=== PATIENT | female | born 1940 | race Caucasian/White ===

== ENCOUNTER 2017-12-31 18:35 | Outpatient (REF) | payer OTHER, SELFPAY ==
[2017-12-31 19:30] LABS: ALT 43 U/L (12-78); AST 33 U/L (15-37); Albumin 3.9 g/dL (3.4-5.0); Alkaline Phosphatase 85 U/L (46-116); Anion Gap 11.5 mmol/L (3-11); BUN 27 mg/dL (7-18); Bilirubin, Total 1.8 mg/dL (0.2-1.0); CO2 28.5 mmol/L (21.0-32.0); Calcium 9.3 mg/dL (8.5-10.1); Chloride 104 mmol/L (98-107); Cholesterol 224 mg/dL (50-200); Estimated GFR 33.67 (mL/min/1.73m2); Glucose 91 mg/dL (70-100); HDL Cholesterol 68 mg/dL (40-60); LDL CHOLESTEROL 142 mg/dL (<100); Potassium 3.7 mmol/L (3.5-5.1); Sodium 144 mmol/L (136-145); Triglyceride 90 mg/dL (30-150)
== END 2017-12-31 18:55 ==
LOC: NCHCN 18:35
PROVIDERS: PCP Nurse Practitioner; Visit Provider Nurse Practitioner
DX: N28.9 Disorder of kidney and ureter, unspecified (principal); I10 Essential (primary) hypertension; E78.5 Hyperlipidemia, unspecified
CPT/HCPCS: 80053; 80061; 83721

== ENCOUNTER 2018-07-07 14:11 | Inpatient (IN) | payer OTHER, SELFPAY ==
[2018-07-07] VITALS (36 sets, daily range): BP systolic 32–135; BP diastolic 13–103; PULSE 74–91; RESP 15–33; TEMP 36.6–36.9; O2SAT 90–97
--- NOTE | 2018-07-07 14:25 | DI.RAD_ITS ---
SYMPTOM/DIAGNOSIS: SOB AP AND LATERAL CHEST: The heart is markedly enlarged. No previous chest film available for comparison. There are bilateral pleural effusions, probably small. There is some prominence of the pulmonary interstitial markings raising the possibility of mild CHF. CONCLUSION: Marked cardiomegaly, question mild CHF. No previous films available for comparison.
--- NOTE | 2018-07-07 14:26 | W.ED.GENAD ---
Discharge Plan Disposition Patient Disposition: [facility] INPATIENT Condition: Improving Discharge Details Chief Complaint: SOB Clinical Impression: CHF (congestive heart failure) Admit Date/Time: 07/07/18 17:35 Admit Provider: Ronald Lyle Attending Provider: Ronald Lyle Primary Care Provider: Selena Santacruz ED Provider: Иван Blanco Discharge Data Discharge Date/Time-TO BE ENTERED AT DEPARTURE: 07/07/18 18:40 Medical Decision Making 78-year-old with a history of hypertension, VSD, pulmonary hypertension, presents from home via EMS with what she describes as transient shortness of breath upon awakening this morning. Improved by the time of arrival. However, she will note 3 to 4 days of increasing exertional dyspnea in which she gets short of breath when walking across her trailer. She is also noted concomitant lower extremity edema and states that she had a recent increase in her diuretic per her primary care physician. She lives alone. She arrives afebrile, with normal blood pressure, 88 to 90% sat on room air. Crackles present at the bases. Concern for fluid overload given her clinical presentation. IV access established, patient placed a cardiac cath technician, labs obtained. Patient given 40 mg of IV Lasix which has been her oral dose, she states, over the past 2 weeks. Diagnostics: Notable for worsening renal function with BUN 42, creatinine 1.7. BNP is 31,616, troponin 0.06. Chest x-ray reviewed with Dr. Robles: Cardiomegaly, cephalization of vessels, small pleural effusions, consistent with congestive heart failure. Patient states to me she has had no outpatient or referral care outside of the local region and is been followed at [facility] for 50 years. She states she had had a VSD since a young age, and has had no ongoing cardiac care as an adult. She is improving with diuresis. She states she feels better. As she lives alone and has persistent fluid overload she will benefit from admission and further work-up. Case discussed with Dr Lyle. Note: Patient wishes to be DNR DNI. Records requested from clinic. Medications reviewed from clinic visit in January 2018: Aspir-81 81 MG Tablet Delayed Release 1 tablet Orally Once a day Vitamin D 400 UNIT Tablet Orally [place] 3-6-9 Complex Capsule Orally Lorazepam 0.5 MG Tablet 1 tablet as needed Orally Twice a day Lasix 20 MG Tablet 1 tablet Orally Once a day (increased to 40mg per patient) Lisinopril 20 MG Tablet 1 tablet Orally Once a day Atorvastatin Calcium 10 MG Tablet 1 tablet Orally Once a day ECG Data Attestation: I personally reviewed and interpreted this ECG (s) as follows: Interpretation: Normal sinus rhythm with a rate of 86, the QRS slightly widened with a duration of [address] segment elevation present. There is nonspecific T wave changes in leads aVL HPI General Mode of arrival: EMS. Date/Time Provider Initiated Documentation: 07/07/18 14:18. Limitations to Documentation: no limitations. Information obtained by: patient and EMS. History of Present Illness 78 year old F presents to the emergency department with the chief complaint of Shortness of breath this morning, improved. Worsening over 3 days, described as similar to prior episodes, and is localized to the chest. Patient started experiencing this minute(s) and it has been intermittent. Movement worsens symptoms . Patient notes shortness of breath; denies chest pain, cough and fever/chills. Patient did receive the following treatments prior to arrival, none Related Data Home Medications Medication Instructions Recorded Confirmed Clayton 3 830 mg PO DAILY 07/07/18 07/07/18 aspirin [Aspir-81] 81 mg PO DAILY 07/07/18 07/07/18 atorvastatin 10 mg PO QHS 07/07/18 07/07/18 cholecalciferol (vitamin D3) 400 unit PO DAILY 07/07/18 07/07/18 furosemide [Lasix] 20 mg PO DAILY 07/07/18 07/07/18 hydroxyzine HCl 10 mg PO HS 07/07/18 07/07/18 lorazepam 0.5 mg PO QHS PRN 07/07/18 07/07/18 Allergies Allergy/AdvReac Type Severity Reaction Status Date / Time Penicillins Allergy Unverified 07/07/18 18:59 Sulfa (Sulfonamide Allergy Unverified 07/07/18 18:59 Antibiotics) General Stated Complaint: RespSymp RETA: 2 Review of Systems Review of Systems No chest pain. Notes bilateral peripheral edema. States recent increase in her Lasix. No recent cough or fever. 8 systems reviewed and otherwise neg [facility] Medical History Insomnia (Chronic) Anxiety (Chronic) Pulmonary hypertension (Chronic) Dyslipidemia (Chronic) Hypertension (Chronic) CKD (chronic kidney disease) (Chronic) Chronic venous insufficiency (Chronic) VSD (ventricular septal defect) (Chronic) Sensorineural hearing loss of both ears (Chronic) Social History Alcohol Intake: never Drug use: Never Substance use type: does not use Do you feel safe at home: Yes Do you feel safe in your relationship?: Yes Additional Social history: , 2 children. Lifelong nonsmoker, occasional alcohol use. Exam Narrative Exam Narrative: GEN: awake, alert, oriented 3. Pleasant, well groomed, interactive. HEAD: Normocephalic, atraumatic ENT: Mucous membranes moist, oropharynx unremarkable, External ear exam unremarkable EYES: PERRL, EOMI NECK: Full ROM, no REJI, no menigismus CHEST/RESP: Nontender, rales present at the bases CARDIOVASCULAR: Distant, blowing 2 out of 6 to 3 out of 6 systolic ejection murmur, no rub mark. 2+ Rad pulse bilateral ABDOMEN: Soft, nontender, no mass. +Bowel sounds EXT: Full ROM, 2-3+ symmetric lower extremity edema, no rash. Cool with palpable DP bilaterally Neuro: Grossly normal neurologic exam, conversant, interactive. Psych: Speech fluent, thoughts congruent, affect normal Course Vital Signs Temperature 36.7 C 07/07/18 14:15 Respiratory Rate 18 07/07/18 14:15 Temperature 36.7 C 07/07/18 14:15 Temperature Source Temporal Artery Scan 07/07/18 14:15 Respiratory Rate 18 07/07/18 14:15 Oxygen Delivery Method Room Air 07/07/18 14:15 Oxygen Flow Rate 0 07/07/18 14:15
--- NOTE | 2018-07-07 14:29 | ED.GENADUL_ITS ---
Discharge Plan Disposition Patient Disposition: [facility] INPATIENT Condition: Improving Discharge Details Chief Complaint: SOB Clinical Impression: CHF (congestive heart failure) Admit Date/Time: 07/07/18 17:35 Admit Provider: Ronald Lyle Attending Provider: Ronald Lyle Primary Care Provider: Selena Santarcuz ED Provider: Иван Blanco Discharge Data Discharge Date/Time-TO BE ENTERED AT DEPARTURE: 07/07/18 18:40 Medical Decision Making 78-year-old with a history of hypertension, VSD, pulmonary hypertension, presents from home via EMS with what she describes as transient shortness of breath upon awakening this morning. Improved by the time of arrival. However, she will note 3 to 4 days of increasing exertional dyspnea in which she gets short of breath when walking across her trailer. She is also noted concomitant lower extremity edema and states that she had a recent increase in her diuretic per her primary care physician. She lives alone. She arrives afebrile, with normal blood pressure, 88 to 90% sat on room air. Crackles present at the bases. Concern for fluid overload given her clinical presentation. IV access established, patient placed a electronic device monitor, labs obtained. Patient given 40 mg of IV Lasix which has been her oral dose, she states, over the past 2 weeks. Diagnostics: Notable for worsening renal function with BUN 42, creatinine 1.7. BNP is 31,616, troponin 0.06. Chest x-ray reviewed with Dr. Robles: Cardiomegaly, cephalization of vessels, small pleural effusions, consistent with congestive heart failure. Patient states to me she has had no outpatient or referral care outside of the local region and is been followed at [facility] for 50 years. She states she had had a VSD since a young age, and has had no ongoing cardiac care as an adult. She is improving with diuresis. She states she feels better. As she lives alone and has persistent fluid overload she will benefit from admission and further work-up. Case discussed with Dr Lyle. Note: Patient wishes to be DNR DNI. Records requested from clinic. Medications reviewed from clinic visit in January 2018: Aspir-81 81 MG Tablet Delayed Release 1 tablet Orally Once a day Vitamin D 400 UNIT Tablet Orally [place] 3-6-9 Complex Capsule Orally Lorazepam 0.5 MG Tablet 1 tablet as needed Orally Twice a day Lasix 20 MG Tablet 1 tablet Orally Once a day (increased to 40mg per patient) Lisinopril 20 MG Tablet 1 tablet Orally Once a day Atorvastatin Calcium 10 MG Tablet 1 tablet Orally Once a day ECG Data Attestation: I personally reviewed and interpreted this ECG (s) as follows: Interpretation: Normal sinus rhythm with a rate of 86, the QRS slightly widened with a duration of [address] segment elevation present. There is nonspecific T wave changes in leads aVL HPI General Mode of arrival: EMS . Date/Time Provider Initiated Documentation: 07/07/18 14:18 . Limitations to Documentation: no limitations . Information obtained by: patient and EMS . History of Present Illness 78 year old F presents to the emergency department with the chief complaint of Shortnes s of breath this morning, improved. Worsening over 3 days, described as similar to prior episodes, and is localized to the chest. Patient started experiencing this minute(s) and it has been intermittent. Movement worsens symptoms . Patient notes shortness of breath; denies chest pain, cough and fever/chills. Patient did receive the following treatments prior to arrival, none Related Data Home Medications Medication Instructions Recorded Confirmed [place] 3 830 mg PO DAILY 07/07/18 07/07/18 aspirin [Aspir-81] 81 mg PO DAILY 07/07/18 07/07/18 atorvastatin 10 mg PO QHS 07/07/18 07/07/18 cholecalciferol (vitamin D3) 400 unit PO DAILY 07/07/18 07/07/18 furosemide [Lasix] 20 mg PO DAILY 07/07/18 07/07/18 hydroxyzine HCl 10 mg PO HS 07/07/18 07/07/18 lorazepam 0.5 mg PO QHS PRN 07/07/18 07/07/18 Allergies Allergy/AdvReac Type Severity Reaction Status Date / Time Penicillins Allergy Unverified 07/07/18 18:59 Sulfa (Sulfonamide Allergy Unverified 07/07/18 18:59 Antibiotics) General Stated Complaint: RespSymp RETA: 2 Review of Systems Review of Systems No chest pain. Notes bilateral peripheral edema. States recent increase in her Lasix. No recent cough or fever. 8 systems reviewed and otherwise neg [facility] Medical History Insomnia (Chronic) Anxiety (Chronic) Pulmonary hypertension (Chronic) Dyslipidemia (Chronic) Hypertension (Chronic) CKD (chronic kidney disease) (Chronic) Chronic venous insufficiency (Chronic) VSD (ventricular septal defect) (Chronic) Sensorineural hearing loss of both ears (Chronic) Social History Alcohol Intake: never Drug use: Never Substance use type: does not use Do you feel safe at home: Yes Do you feel safe in your relationship?: Yes Additional Social history: , 2 children. Lifelong nonsmoker, occasional alcohol use. Exam Narrative Exam Narrative: GEN: awake, alert, oriented 3. Pleasant, well groomed, interactive. HEAD: Normocephalic, atraumatic ENT: Mucous membranes moist, oropharynx unremarkable, External ear exam unremarkable EYES: PERRL, EOMI NECK: Full ROM, no REJI, no menigismus CHEST/RESP: Nontender, rales present at the bases CARDIOVASCULAR: Distant, blowing 2 out of 6 to 3 out of 6 systolic ejection murmur, no rub mark. 2+ Rad pulse bilateral ABDOMEN: Soft, nontender, no mass. +Bowel sounds EXT: Full ROM, 2-3+ symmetric lower extremity edema, no rash. Cool with palpable DP bilaterally Neuro: Grossly normal neurologic exam, conversant, interactive. Psych: Speech fluent, thoughts congruent, affect normal Course Vital Signs Temperature 36.7 C 07/07/18 14:15 Respiratory Rate 18 07/07/18 14:15 Temperature 36.7 C 07/07/18 14:15 Temperature Source Temporal Artery Scan 07/07/18 14:15 Respiratory Rate 18 07/07/18 14:15 Oxygen Delivery Method Room Air 07/07/18 14:15 Oxygen Flow Rate 0 07/07/18 14:15
[2018-07-07] MEDS: Furosemide 40 MG/4 ML VIAL IVP (14:53)
[2018-07-07 15:27] LABS: Abs Immature Grans 0.01 k/cumm (0.0-0.09); Absolute Basophil Count 0.03 k/cumm (0.0-0.2); Absolute Eosinophil Count 0.03 k/cumm (0.0-0.7); Absolute Lymphocyte Count 0.47 k/cumm (1.2-3.4); Absolute Monocyte Count 0.47 k/cumm (0.11-0.7); Absolute Neutrophil Count 4.14 k/cumm (1.2-6.7); Basophils % 0.6; Eosinophils % 0.6; HCT 47.2 % (36.0-46.0); HGB 16.5 g/dL (12.0-15.5); Immature Grans % 0.2; Lymphocytes % 9.1; Mean Corpuscular Hemoglobin 32.7 pg (27.0-33.0); Mean Corpuscular Volume 93.7 fL (80-95); Mean Platelet Volume 11.9 fL (8.0-11.0); Monocytes % 9.1; Neutrophils % 80.4; Platelet Count 106 x1000/uL (130-400); RBC 5.04 m/cumm (4.00-5.20); RBC Distribution Width 18.7 % (11.7-14.6); White Blood Cell Count 5.15 k/cumm (4.4-10.8)
[2018-07-07 15:33] LABS: INR 1.3 (0.9-1.1); PTT Activated 23.6 sec (21.0-31.4); Prothrombin Time 13.2 sec (9.3-11.0)
[2018-07-07 15:48] LABS: ALT 44 U/L (12-78); AST 45 U/L (15-37); Albumin 3.6 g/dL (3.4-5.0); Alkaline Phosphatase 104 U/L (46-116); Anion Gap 12.2 mmol/L (3-11); BUN 42 mg/dL (7-18); Bilirubin, Total 3.5 mg/dL (0.2-1.0); CO2 26.8 mmol/L (21.0-32.0); CREATININE 1.72 mg/dL (0.55-1.02); Calcium 9.8 mg/dL (8.5-10.1); Chloride 99 mmol/L (98-107); Estimated GFR 28.68 (mL/min/1.73m2); Glucose 108 mg/dL (70-100); Magnesium 2.9 mg/dL (1.8-2.4); Potassium 4.6 mmol/L (3.5-5.1); Sodium 138 mmol/L (136-145); Troponin I 0.06 ng/mL (0.00-0.06)
[2018-07-07] MEDS: Aspirin 325 MG TAB PO (16:23)
--- NOTE | 2018-07-07 17:34 | HPE_ITS ---
Date of service: 07/07/18 Time of Service: 17:32 Assessment and Plan (1) CHF (congestive heart failure): Current visit: Yes Status: Chronic Appearance of significantly enlarged heart on CXR, grossly elevated BNP, worsening dyspnea, and lower extremity edema in elderly woman with a history of VSD. Given renal function will initiate on low dose lasix gtt and monitor weight, I/O's, and lytes carefully. Check ECHO tomorrow, and trend serial Cardiac Biomarkers. Will maintain on telemetry as well. (2) YOUSUF (acute kidney injury): Current visit: Yes Status: Acute YOUSUF on CKD. May be due to CHF and poor perfusion. Will attempt gentle diuresis as above, and monitor renal function carefully. Avoid nephrotoxins, and renally dose medications when appropriate. (3) Elevated LFTs: Current visit: Yes Status: Acute New finding - patient also with mild chronic elevation in total Bilirubin, worsened today. Findings may be secondary to Congestive Hepatopathy in the setting of current CHF exacerbation. (4) Pulmonary hypertension: Current visit: Yes Status: Chronic Noted. ECHO as above. (5) VSD (ventricular septal defect): Current visit: Yes Status: Chronic (6) DVT prophylaxis: Current visit: Yes Status: Acute SC Heparin. (7) Advance directive on file: Current visit: Yes Status: Acute DNR/DNI History of Present Illness Chief Complaint: Dyspnea Narrative: Very pleasant 78 year old woman with a prior history of a VSD, being admitted from [facility] Emergency Department on 07/07 with a diagnosis of Acute CHF Exacerbation. Mrs. Slade has a past Medical History significant for VSD, CKD, HTN, PHTN, Dyslipidemia, Anxiety, Insomnia, and Venous Insufficiency. The details of her Septal Defect and PHTN are unknown. She reports onset of LE swelling, along with subjective dyspnea over the last few weeks. She was seen in the clinic by her PCP, diagnosed and treated for a lower extremity cellulitis, at the end of April, and seen again recently. She was reported initiated on diuretic therapy in order to assist with the lower extremity edema. Despite this she reports worsening edema, dyspnea, HAQUE, and now with increased work of breathing. The patient awoke this morning feeling worse, and was transported to the hospital via EMS. Work-up was significant for mildly worsened renal function, mildlly Elevated AST and Bilirubin, grossly elevated BNP, and evidence of CHF Cardiomegally by CXR. She was admitted for further evaluation and treatment. Review of Systems Review of Systems All systems reviewed & are unremarkable except as noted in HPI and below PFSH Medical History Insomnia (Chronic) Anxiety (Chronic) Pulmonary hypertension (Chronic) Dyslipidemia (Chronic) Hypertension (Chronic) CKD (chronic kidney disease) (Chronic) Chronic venous insufficiency (Chronic) VSD (ventricular septal defect) (Chronic) Sensorineural hearing loss of both ears (Chronic) Social History Alcohol Intake: never Drug use: Never Substance use type: does not use Do you feel safe at home: Yes Do you feel safe in your relationship?: Yes Additional Social history: , 2 children. Lifelong nonsmoker, occasional alcohol use. Meds Home Medications Medication Instructions Recorded Confirmed Type Eden 3 830 mg PO DAILY 07/07/18 07/07/18 History aspirin [Aspir-81] 81 mg PO DAILY 07/07/18 07/07/18 History atorvastatin 10 mg PO QHS 07/07/18 07/07/18 History cholecalciferol (vitamin D3) 400 unit PO DAILY 07/07/18 07/07/18 History furosemide [Lasix] 20 mg PO DAILY 07/07/18 07/07/18 History hydroxyzine HCl 10 mg PO HS 07/07/18 07/07/18 History lorazepam 0.5 mg PO QHS PRN 07/07/18 07/07/18 History Exam Narrative Exam Narrative: General: Thin woman, appears comfortable sitting up in bed, AAOX3, NAD Neck: Supple CV: Regular, nontachycardic with mild ectopy, S1S2, 3/6 LLSB murmur. Pulmonary: Bibasilar crackles Abdomen: + Bowel Sounds, soft, nontender, nondistended Vascular: 2-3 + b/l Pitting edema Psych: Normal mood and affect. Results Imaging Chest x-ray: report reviewed and image reviewed Additional studies: Exam(s) 07/07/2018 a RAD:XR chest 2V PA & lateral SYMPTOM/DIAGNOSIS: SOB AP AND LATERAL CHEST: The heart is markedly enlarged. No previous chest film available for comparison. There are bilateral pleural effusions, probably small. There is some prominence of the pulmonary interstitial markings raising the possibility of mild CHF. CONCLUSION: Marked cardiomegaly, question mild CHF. No previous films available for comparison. Labs : 07/07/18 15:17 07/07/18 15:17 Laboratory Results - last 24 hr 07/07/18 07/07/18 07/07/18 15:07 15:17 15:17 WBC 5.15 RBC 5.04 Hgb 16.5 H Hct 47.2 H MCV 93.7 MCH 32.7 MCHC 35.0 RDW 18.7 H Plt Count 106 L MPV 11.9 H Immature Gran % 0.2 Neutrophils % 80.4 Lymphocytes % 9.1 Monocytes % 9.1 Eosinophils % 0.6 Basophils % 0.6 Absolute Neutrophils 4.14 Absolute Lymphocytes 0.47 L Absolute Monocytes 0.47 Absolute Eosinophils 0.03 Absolute Basophils 0.03 PT 13.2 H INR 1.3 H APTT 23.6 Sodium 138 Potassium 4.6 Chloride 99 Carbon Dioxide 26.8 Anion Gap 12.2 H BUN 42 H Creatinine 1.72 H Estimated GFR/1.73 m2 28.68 Glucose 108 H Calcium 9.8 Magnesium 2.9 H Total Bilirubin 3.5 H AST 45 H ALT 44 Alkaline Phosphatase 104 Troponin I 0.06 NT-Pro-B Natriuret Pep 91079 H Total Protein 7.0 Albumin 3.6 Last Vital Signs Temp 36.7 C 07/07/18 14:15 Pulse 87 07/07/18 16:32 Resp 24 07/07/18 16:32 BP 128/72 07/07/18 16:32 Pulse Ox 92 L 07/07/18 16:32
[2018-07-07] MEDS: Mylanta Suspension 30 ML CUP PO (18:17)
[2018-07-07] MEDS: Normal Saline Flush 10 ML SYR IVP (18:54)
[2018-07-07] MEDS: Heparin 5,000 UNITS/ML VIAL 5000 UNITS SC (19:35)
[2018-07-07] MEDS: Atorvastatin 10 MG TAB PO (21:15)
[2018-07-07] MEDS: hydrOXYzine HCL 10 MG TAB PO (21:15)
[2018-07-07 21:52] LABS: Troponin I 0.09 ng/mL (0.00-0.06)
[2018-07-08] VITALS (11 sets, daily range): BP systolic 105–120; BP diastolic 66–78; PULSE 70–83; RESP 17–22; TEMP 36.5–36.9; O2SAT 93–100
[2018-07-08 07:20] LABS: HCT 44.9 % (36.0-46.0); HGB 14.8 g/dL (12.0-15.5); Mean Corpuscular Hemoglobin 31.9 pg (27.0-33.0); Mean Corpuscular Volume 96.8 fL (80-95); Mean Platelet Volume 11.8 fL (8.0-11.0); Platelet Count 102 x1000/uL (130-400); RBC 4.64 m/cumm (4.00-5.20); RBC Distribution Width 18.5 % (11.7-14.6); White Blood Cell Count 4.56 k/cumm (4.4-10.8)
[2018-07-08] MEDS: Pantoprazole 40 MG TABCR PO (07:27)
[2018-07-08] MEDS: Mylanta Suspension 30 ML CUP PO (07:31)
[2018-07-08 07:32] LABS: Anion Gap 9.1 mmol/L (3-11); BUN 45 mg/dL (7-18); CO2 29.9 mmol/L (21.0-32.0); CREATININE 1.83 mg/dL (0.55-1.02); Calcium 8.9 mg/dL (8.5-10.1); Chloride 102 mmol/L (98-107); Glucose 83 mg/dL (70-100); Potassium 4.5 mmol/L (3.5-5.1); Sodium 141 mmol/L (136-145)
[2018-07-08 07:41] LABS: ALT 37 U/L (12-78); AST 39 U/L (15-37); Alkaline Phosphatase 91 U/L (46-116); Bilirubin, Total 2.8 mg/dL (0.2-1.0); Magnesium 2.9 mg/dL (1.8-2.4); Total Protein 5.9 g/dL (6.4-8.2)
[2018-07-08 07:47] LABS: Troponin I 0.08 ng/mL (0.00-0.06)
[2018-07-08 08:01] LABS: Absolute Eosinophil Count 0.09 k/cumm (0.0-0.7); Absolute Lymphocyte Count 0.32 k/cumm (1.2-3.4); Absolute Monocyte Count 0.41 k/cumm (0.11-0.7); Absolute Neutrophil Count 3.74 k/cumm (1.2-6.7); Atypical Lymphocytes % 0
[2018-07-08 08:02] LABS: Anisocytosis 2+; Diff Comment Manual Differential; Hypochromasia 2+; Other Cells 0; Polychromasia Present; Promyelocytes % 0 %
[2018-07-08 08:03] LABS: Bilirubin, Direct 0.78 mg/dL (0.00-0.20); Poikilocytes 1+
--- NOTE | 2018-07-08 08:30 | PDOC.CMIN ---
- If Service Date Differs Date of service: 07/08/18 Time of Service: 08:30 Care Management Initial Assess REASON FOR HOSPITALIZATION:: CHF Exacerbation PAST MEDICAL HISTORY/PAST SURGICAL HISTORY:: Insomnia (Chronic). Anxiety (Chronic). Pulmonary hypertension (Chronic). Dyslipidemia (Chronic). Hypertension (Chronic). CKD (chronic kidney disease) (Chronic). Chronic venous insufficiency (Chronic). VSD (ventricular septal defect) (Chronic). Sensorineural hearing loss of both ears (Chronic) PREVIOUS FUNCTIONAL STATUS/SOCIAL/FAMILY SUPPORTS:: Charissa resides alone in [place]. She has two sons as well as one son whom she identified as her adopted son. All of her sons reside locally and are supportive. Charissa states that she had a caregiver recently, however let her go a couple of days ago. Charissa is independent at baseline, she states that her son Marquise does her grocery shopping, and her son Alberto drives her to appointments. CURRENT FUNCTIONAL STATUS:: Currently Charissa is sitting up in her chair, she is pleasant and receptive to discussion. ADVANCE DIRECTIVES:: On File - Beto Slade III is her agent Has patient been provided with information about the portal?: Yes Did the patient sign up for the portal?: No CODE STATUS:: DNR/DNI INSURANCE COVERAGE / FINANCIAL ISSUES:: [employer], [employer] CURRENT HOME/COMMUNITY SERVICES/EQUIPMENT:: Jennifer Carrington has no services in the community. She has [employer], [employer], grab bars in her bathroom, and a built in seat in her walk in shower. PRIMARY CARE PHYSICIAN:: Selena Santacruz POTENTIAL DISCHARGE NEEDS:: F/U appointment with PCP PATIENT/FAMILY EDUCATION NEEDS:: Review DC instructions, any limitations, and ongoing DC planning discussion. Discuss ?Ask Me Three? ANTICIPATED BARRIERS TO DISCHARGE:: None identified at this time TRANSPORTATION:: Via private vehicle with radha Dominguez PLAN:: Charissa will return home with ? home health services once medically cleared. She will F/U with PCP and plan of care as prescribed. [facility] radha Dominguez will transport when ready.
[2018-07-08] MEDS: Aspirin E.C. 81 MG TABEC PO (08:34)
[2018-07-08] MEDS: Cholecalciferol (Vitamin D3) 400 UNIT TAB PO (08:34)
--- NOTE | 2018-07-08 08:36 | INITIAL_ITS ---
- If Service Date Differs Date of service: 07/08/18 Time of Service: 08:30 Care Management Initial Assess REASON FOR HOSPITALIZATION:: CHF Exacerbation PAST MEDICAL HISTORY/PAST SURGICAL HISTORY:: Insomnia (Chronic). Anxiety (Chronic). Pulmonary hypertension (Chronic). Dyslipidemia (Chronic). Hypertension (Chronic). CKD (chronic kidney disease) (Chronic). Chronic venous insufficiency (Chronic). VSD (ventricular septal defect) (Chronic). Sensorine ural hearing loss of both ears (Chronic) PREVIOUS FUNCTIONAL STATUS/SOCIAL/FAMILY SUPPORTS:: Charissa resides alone in [place]. She has two sons as well as one son whom she identified as her adopted son. All of her sons reside locally and are supportive. Charissa states that she had a caregiver recently, however let her go a couple of days ago. Charissa is independent at baseline, she states that her son Marquise does her grocery shopping, and her son Alberto drives her to appointments. CURRENT FUNCTIONAL STATUS:: Currently Charissa is sitting up in her chair, she is pleasant and receptive to discussion. ADVANCE DIRECTIVES:: On File - Beto Slade III is her agent Has patient been provided with information about the portal?: Yes Did the patient sign up for the portal?: No CODE STATUS:: DNR/DNI INSURANCE COVERAGE / FINANCIAL ISSUES:: [employer], [employer] CURRENT HOME/COMMUNITY SERVICES/EQUIPMENT:: Jennifer Carrington has no services in the community. She has [employer], [employer], grab bars in her bathroom, and a built in seat in her walk in shower. PRIMARY CARE PHYSICIAN:: Selena Santacruz POTENTIAL DISCHARGE NEEDS:: F/U appointment with PCP PATIENT/FAMILY EDUCATION NEEDS:: Review DC instructions, any limitations, and ongoing DC planning discussion. Discuss ?Ask Me Three? ANTICIPATED BARRIERS TO DISCHARGE:: None identified at this time TRANSPORTATION:: Via private vehicle with radha Dominguez PLAN:: Charissa will return home with ? home health services once medically cleared. She will F/U with PCP and plan of care as prescribed. [facility] Doming[facility] will transport when ready.
[2018-07-08] MEDS: Normal Saline Flush 10 ML SYR IVP (10:51)
[2018-07-08] MEDS: Heparin 5,000 UNITS/ML VIAL 5000 UNITS SC ×2 (11:02→18:32)
--- NOTE | 2018-07-08 12:15 | W.PM.PROGNOT ---
Date of Service Date of service: 07/08/18 Time of Service: 12:15 Assessment and Plan (1) CHF (congestive heart failure): Current visit: Yes Status: Chronic Appearance of significantly enlarged heart on CXR, grossly elevated BNP, worsening dyspnea, and lower extremity edema in elderly woman with a history of VSD. Given renal function she was initiate on low dose lasix gtt with increase this morning, and poor UOP and unchanged overall clinically. Will increase dose again, and continue to monitor weight, I/O's, and lytes carefully. ECHO ordered and pending. Minimal elevation in Cardiac Biomarkers likely demand in setting of poor clearance (Acute on Chronic Kidney Disease). Will maintain on telemetry as well. (2) YOUSUF (acute kidney injury): Current visit: Yes Status: Acute YOUSUF on CKD. May be due to CHF and poor perfusion. Will attempt gentle diuresis as above, and monitor renal function carefully. Avoid nephrotoxins, and renally dose medications when appropriate. (3) Elevated LFTs: Current visit: Yes Status: Acute New finding - patient also with mild chronic elevation in total Bilirubin, worsened from prior. Findings may be secondary to Congestive Hepatopathy in the setting of current CHF exacerbation. Appears mildly improved this morning. Monitor. (4) Pulmonary hypertension: Current visit: Yes Status: Chronic Noted. ECHO as above. (5) VSD (ventricular septal defect): Current visit: Yes Status: Chronic (6) DVT prophylaxis: Current visit: Yes Status: Acute SC Heparin. (7) Advance directive on file: Current visit: Yes Status: Acute DNR/DNI Subjective Interval history since last seen: Very pleasant 78 year old woman with a prior history of a VSD, admitted from [facility] Emergency Department on 07/07 with a diagnosis of Acute CHF Exacerbation. Mrs. Slade has a past Medical History significant for VSD, CKD, HTN, PHTN, Dyslipidemia, Anxiety, Insomnia, and Venous Insufficiency. The details of her Septal Defect and PHTN are unknown. She reports onset of LE swelling, along with subjective dyspnea over the last few weeks. She was seen in the clinic by her PCP in late April, diagnosed and treated for a lower extremity cellulitis, and seen again recently in follow-up. She was initiated on diuretic therapy at some point in order to assist with the lower extremity edema. Despite this she reports worsening edema, dyspnea, HAQUE, and then with increased work of breathing. The patient awoke on the morning of admissionfeeling worse, and was transported to the hospital via EMS. Work-up was significant for mildly worsened renal function, mildlly Elevated AST and Bilirubin, grossly elevated BNP, and evidence of CHF and significant Cardiomegally by CXR. She was admitted for further evaluation and treatment. This morning the patient feels essentially unchanged. She has not diuresed significantly, and her creatinine is mildly worse as well. No overnight events were reported. Remains afebrile. Exam Narrative Exam Narrative: General: Thin woman, appears comfortable sitting up in bed, AAOX3, NAD Neck: Supple CV: Regular, nontachycardic with mild ectopy, S1S2, 3/6 LLSB murmur. Pulmonary: Bibasilar crackles Abdomen: + Bowel Sounds, soft, nontender, nondistended Vascular: 2-3 + b/l Pitting edema Psych: Normal mood and affect. Objective Objective Clinical Data: Abnormal lab results 07/07/18 07/07/18 07/07/18 Range/Units 15:07 15:17 15:17 Hgb 16.5 H (12.0-15.5) g/dL Hct 47.2 H (36.0-46.0) % MCV (80-95) fL RDW 18.7 H (11.7-14.6) % Plt Count 106 L (130-400) x1000/uL MPV 11.9 H (8.0-11.0) fL Absolute Lymphocytes 0.47 L (1.2-3.4) k/cumm PT 13.2 H (9.3-11.0) sec INR 1.3 H (0.9-1.1) Anion Gap 12.2 H (3-11) mmol/L BUN 42 H (7-18) mg/dL Creatinine 1.72 H (0.55-1.02) mg/dL Glucose 108 H (70-100) mg/dL Magnesium 2.9 H (1.8-2.4) mg/dL Total Bilirubin 3.5 H (0.2-1.0) mg/dL Conjugated Bilirubin (0.00-0.20) mg/dL AST 45 H (15-37) U/L Troponin I (0.00-0.06) ng/mL NT-Pro-B Natriuret Pep 79782 H ( - 299) pg/mL Total Protein (6.4-8.2) g/dL Albumin (3.4-5.0) g/dL 07/07/18 07/08/18 07/08/18 Range/Units 21:05 06:45 06:45 Hgb (12.0-15.5) g/dL Hct (36.0-46.0) % MCV (80-95) fL RDW (11.7-14.6) % Plt Count (130-400) x1000/uL MPV (8.0-11.0) fL Absolute Lymphocytes (1.2-3.4) k/cumm PT (9.3-11.0) sec INR (0.9-1.1) Anion Gap (3-11) mmol/L BUN 45 H (7-18) mg/dL Creatinine 1.83 H (0.55-1.02) mg/dL Glucose (70-100) mg/dL Magnesium 2.9 H (1.8-2.4) mg/dL Total Bilirubin (0.2-1.0) mg/dL Conjugated Bilirubin (0.00-0.20) mg/dL AST (15-37) U/L Troponin I 0.09 H* 0.08 H* (0.00-0.06) ng/mL NT-Pro-B Natriuret Pep ( - 299) pg/mL Total Protein (6.4-8.2) g/dL Albumin (3.4-5.0) g/dL 07/08/18 07/08/18 Range/Units 06:45 06:45 Hgb (12.0-15.5) g/dL Hct (36.0-46.0) % MCV 96.8 H D (80-95) fL RDW 18.5 H (11.7-14.6) % Plt Count 102 L (130-400) x1000/uL MPV 11.8 H (8.0-11.0) fL Absolute Lymphocytes 0.32 L (1.2-3.4) k/cumm PT (9.3-11.0) sec INR (0.9-1.1) Anion Gap (3-11) mmol/L BUN (7-18) mg/dL Creatinine (0.55-1.02) mg/dL Glucose (70-100) mg/dL Magnesium (1.8-2.4) mg/dL Total Bilirubin 2.8 H (0.2-1.0) mg/dL Conjugated Bilirubin 0.78 H (0.00-0.20) mg/dL AST 39 H (15-37) U/L Troponin I (0.00-0.06) ng/mL NT-Pro-B Natriuret Pep ( - 299) pg/mL Total Protein 5.9 L (6.4-8.2) g/dL Albumin 3.0 L (3.4-5.0) g/dL Vital Signs Temperature 36.9 C 07/08/18 11:38 Temperature Source Tympanic 07/08/18 11:38 Pulse 81 07/08/18 11:38 Pulse Rhythm Irregular 07/08/18 07:20 Pulse 79 07/07/18 18:01 Respiratory Rate 22 07/08/18 11:38 Respiratory Effort Non-Labored 07/08/18 07:20 Respiratory Depth Normal 07/08/18 07:20 Respiratory Pattern Normal 07/08/18 07:20 Blood Pressure 120/78 07/08/18 11:38 Blood Pressure Mean 88 07/07/18 18:01 Blood Pressure Position Sitting 07/07/18 14:15 Pulse Oximetry 93 L 07/08/18 11:38 Oxygen Delivery Method Nasal Cannula 07/08/18 11:38 Oxygen Flow Rate 2 07/08/18 11:38 Pain Level 2 07/08/18 08:31 Comment 07/08/18 04:30 Intake & Output 07/07/18 07/08/18 07/08/18 23:59 11:59 23:59 Intake Total 519.792 / 519.792 Output Total 170 / 170 395 / 395 Balance -170 / -170 124.792 / 124.792 Weight 47.4 kg 49.6 kg Intake: IV 49.792 / 49.792 Oral 470 / 470 Output: Urine 170 / 170 395 / 395 Other: Urine Color Yellow Yellow Urine Appearance Clear Sediment Stool Size Moderate Stool Characteristics Liquid Laboratory Results WBC 4.56 k/cumm (4.4-10.8) 07/08/18 06:45 RBC 4.64 m/cumm (4.00-5.20) 07/08/18 06:45 Hgb 14.8 g/dL (12.0-15.5) 07/08/18 06:45 Hct 44.9 % (36.0-46.0) 07/08/18 06:45 MCV 96.8 fL (80-95) H D 07/08/18 06:45 MCH 31.9 pg (27.0-33.0) 07/08/18 06:45 MCHC 33.0 g/dL (32.0-36.0) 07/08/18 06:45 RDW 18.5 % (11.7-14.6) H 07/08/18 06:45 Plt Count 102 x1000/uL (130-400) L 07/08/18 06:45 MPV 11.8 fL (8.0-11.0) H 07/08/18 06:45 Immature Gran % See Differential 07/08/18 06:45 Neutrophils % 82.0 07/08/18 06:45 Band Neutrophils % 0.0 % 07/08/18 06:45 Lymphocytes % 7.0 07/08/18 06:45 Atypical Lymphs % 0 07/08/18 06:45 Monocytes % 9.0 07/08/18 06:45 Eosinophils % 2.0 07/08/18 06:45 Basophils % 0.0 07/08/18 06:45 Metamyelocytes % 0.0 % 07/08/18 06:45 Myelocytes % 0.0 % 07/08/18 06:45 Promyelocytes % 0 % 07/08/18 06:45 Absolute Neutrophils 3.74 k/cumm (1.2-6.7) 07/08/18 06:45 Absolute Lymphocytes 0.32 k/cumm (1.2-3.4) L 07/08/18 06:45 Absolute Monocytes 0.41 k/cumm (0.11-0.7) 07/08/18 06:45 Absolute Eosinophils 0.09 k/cumm (0.0-0.7) 07/08/18 06:45 Absolute Basophils 0.00 k/cumm (0.0-0.2) 07/08/18 06:45 Differential Comment Manual differential 07/08/18 06:45 Other Cell Type 0 07/08/18 06:45 RBC Morphology See below 07/08/18 06:45 Polychromasia Present 07/08/18 06:45 Hypochromasia 2+ 07/08/18 06:45 Poikilocytosis 1+ 07/08/18 06:45 Anisocytosis 2+ 07/08/18 06:45 PT 13.2 sec (9.3-11.0) H 07/07/18 15:07 INR 1.3 (0.9-1.1) H 07/07/18 15:07 APTT 23.6 sec (21.0-31.4) 07/07/18 15:07 Sodium 141 mmol/L (136-145) 07/08/18 06:45 Potassium 4.5 mmol/L (3.5-5.1) 07/08/18 06:45 Chloride 102 mmol/L (98-107) 07/08/18 06:45 Carbon Dioxide 29.9 mmol/L (21.0-32.0) 07/08/18 06:45 Anion Gap 9.1 mmol/L (3-11) 07/08/18 06:45 BUN 45 mg/dL (7-18) H 07/08/18 06:45 Creatinine 1.83 mg/dL (0.55-1.02) H 07/08/18 06:45 Estimated GFR/1.73 m2 26.70 (mL/min/1.73m2) 07/08/18 06:45 Glucose 83 mg/dL (70-100) 07/08/18 06:45 Calcium 8.9 mg/dL (8.5-10.1) 07/08/18 06:45 Magnesium 2.9 mg/dL (1.8-2.4) H 07/08/18 06:45 Total Bilirubin 2.8 mg/dL (0.2-1.0) H 07/08/18 06:45 Conjugated Bilirubin 0.78 mg/dL (0.00-0.20) H 07/08/18 06:45 AST 39 U/L (15-37) H 07/08/18 06:45 ALT 37 U/L (12-78) 07/08/18 06:45 Alkaline Phosphatase 91 U/L (46-116) 07/08/18 06:45 Troponin I 0.08 ng/mL (0.00-0.06) H* 07/08/18 06:45 NT-Pro-B Natriuret Pep 85868 pg/mL (-299) H 07/07/18 15:17 Total Protein 5.9 g/dL (6.4-8.2) L 07/08/18 06:45 Albumin 3.0 g/dL (3.4-5.0) L 07/08/18 06:45
--- NOTE | 2018-07-08 12:45 | MERGE_ITS ---
*[facility]* *[facility]* [address] [place] [address] Date of study: 07/08/2018 Transthoracic Echocardiography M-mode, complete 2D, complete spectral Doppler, and color Doppler *STUDY CONCLUSIONS* Summary: 1. Left ventricle: The cavity size was severely dilated. The estimated ejection fraction was 15-20%. Diffuse hypokinesis. 2. Ventricular septum: There was a defect in the perimembranous or supracristal region. There was a moderate LVOT - right ventricular level shunt. 3. Aortic valve: There was mild stenosis. There was moderate regurgitation. Valve area (VTI): 1.3cm^2. 4. Mitral valve: There was severe regurgitation. 5. Left atrium: The atrium was severely dilated. 6. Right ventricle: The cavity size was moderately dilated. Systolic function was mildly to moderately reduced. 7. Right atrium: The atrium was severely dilated. 8. Atrial septum: No defect or patent foramen ovale was identified. 9. Tricuspid valve: There was moderate-severe regurgitation. 10. Pulmonic valve: There was moderate regurgitation. 11. Pulmonary arteries: Pulmonary systolic pressure was in the range of 85mm Hg to 100mm Hg. 12. Inferior vena cava: The vessel was patent and dilated. The respirophasic diameter changes were blunted (less than 50%), consistent with elevated central venous pressure. *PATIENT PRESENTATION* Height: 134.6cm ((53in) ) S/D Pressure: 120 / 78 Weight: 47.2kg ((103.8lb) ) BSA: 1.35m^2 Test start time: 12:50 PM. Test stop time: 02:00 PM. PERFORMING Unknown ORDERING Ronald Lyle REFERRING Ronald Lyle PERFORMING [facility] CONSULTING Selena Santacruz TOOLING INSPECTOR RT Froy Easton)(CT), [facility] *PROCEDURE DATA* Procedure information: The patient was identified by two identifiers. This study was interpreted by [facility]. Pertinent images and digital data are archived for permanent storage and are available for subsequent review. Comparison was made to the study of 2010. Study status: Routine. Transthoracic echocardiography. M-mode, complete 2D, complete spectral Doppler, and color Doppler. A Transthoracic Echocardiogram was performed. Scanning was performed from the parasternal, apical, subcostal, and suprasternal notch acoustic windows. Images were obtained using an [id number] cardiac ultrasound machine. Image quality was adequate. Study completion: The patient tolerated the procedure well. History: PMH: Acute CHF. *CARDIAC ANATOMY* Left ventricle: The cavity size was severely dilated. The estimated ejection fraction was 15-20%. Diffuse hypokinesis. The study is not technically sufficient to allow evaluation of LV diastolic function. Aortic valve: Doppler: There was mild stenosis. There was moderate regurgitation. VTI ratio of LVOT to aortic valve: 0.39. Valve area (VTI): 1.3cm^2. Indexed valve area (VTI): 1cm^2/m^2. Peak velocity ratio of LVOT to aortic valve: 0.38. Valve area (Vmax): 1.3cm^2. Indexed valve area (Vmax): 1cm^2/m^2. Mean velocity ratio of LVOT to aortic valve: 0.36. Valve area (Vmean): 1.2cm^2. Indexed valve area (Vmean): 0.9cm^2/m^2. Mean gradient (S): 4.4mm Hg. Peak gradient (S): 8mm Hg. Mitral valve: Doppler: There was no evidence for stenosis. There was severe regurgitation. Valve area by pressure half-time: 5.8cm^2. Indexed valve area by pressure half-time: 4.3cm^2/m^2. Peak gradient (D): 4.4mm Hg. Left atrium: The atrium was severely dilated. Atrial septum: No defect or patent foramen ovale was identified. Right ventricle: The cavity size was moderately dilated. Systolic function was mildly to moderately reduced. Ventricular septum: There was a defect in the perimembranous or supracristal region. There was a moderate LVOT - right ventricular level shunt. Pulmonic valve: Doppler: There was no evidence for stenosis. There was moderate regurgitation. Tricuspid valve: Doppler: There was moderate-severe regurgitation. Pulmonary artery: Poorly visualized. Pulmonary systolic pressure was in the range of 85mm Hg to 100mm Hg. Right atrium: The atrium was severely dilated. Pericardium: There was no pericardial effusion. Systemic veins: Inferior vena cava: Well visualized. The vessel was patent and dilated. The respirophasic diameter changes were blunted (less than 50%), consistent with elevated central venous pressure. Baseline ECG: Normal sinus rhythm. Measurements Left ventricle Value Reference LV ID, ED, PLAX (H) 6.9 cm 3.5 - 6.0 LV ID, ES, PLAX (H) 6.3 cm 2.1 - 4.0 LV PW thickness, ED, PLAX 0.8 cm LV end-diastolic volume, 1-p A2C 186 ml LV ejection fraction, 1-p A2C 19 % LV end-diastolic volume, 1-p A4C 176 ml LV ejection fraction, 1-p A4C 18 % LV e', lateral 0.072 m/sec LV E/e', lateral 15 LV e', medial 0.034 m/sec LV E/e', medial 31 LV e', average 0.053 m/sec LV E/e', average 20 Ventricular septum Value Reference IVS thickness, ED, PLAX 0.6 cm LVOT Value Reference LVOT ID, A-P 2.1 cm LVOT area 3.3 cm^2 LVOT peak velocity, S 0.54 m/sec LVOT mean velocity, S 0.36 m/sec LVOT VTI, S 8.9 cm LVOT peak gradient, S 1.2 mm Hg LVOT mean gradient, S 0.6 mm Hg Stroke volume (SV), LVOT DP 30 ml Stroke index (SV/bsa), LVOT DP 22 ml/m^2 Aortic valve Value Reference Aortic valve peak velocity, S 1.4 m/sec Aortic valve mean velocity, S 1 m/sec Aortic valve VTI, S 23.0 cm Aortic mean gradient, S 4.4 mm Hg Aortic peak gradient, S 8 mm Hg VTI ratio, LVOT/AV 0.39 Aortic valve area, VTI 1.3 cm^2 Velocity ratio, peak, LVOT/AV 0.38 Aortic valve area, peak velocity 1.3 cm^2 Velocity ratio, mean, LVOT/AV 0.36 Aortic valve area, mean velocity 1.2 cm^2 Aortic valve area/bsa, mean velocity 0.9 cm^2/m^2 Aortic regurg deceleration 252 cm/s^2 Aortic regurg pressure half-time 343 ms Aorta Value Reference Aortic root ID, ED 3.2 cm Ascending aorta ID, A-P, S 2.9 cm RVOT Value Reference RVOT area 4 cm^2 RVOT VTI, S 11.5 cm Left atrium Value Reference LA ID, A-P, ES 5.9 cm LA ID/bsa, A-P (H) 4.4 cm/m^2 <=2.2 LA area, ES, A4C (H) 31.3 cm^2 8.8 - 23.4 LA area, ES, A2C 31 cm^2 LA volume/bsa, ES, 1-p A4C 101 ml/m^2 LA volume, ES, 2-p 122 ml LA volume/bsa, ES, 2-p 91 ml/m^2 LA/aortic root ratio 1.86 Mitral valve Value Reference Mitral E-wave peak velocity 1.05 m/sec Mitral A-wave peak velocity 0.81 m/sec Mitral deceleration time (L) 130 ms 150 - 230 Mitral pressure half-time 38 ms Mitral peak gradient, D 4.4 mm Hg Mitral E/A ratio, peak 1.3 Mitral valve area, PHT, DP 5.8 cm^2 Tricuspid valve Value Reference Tricuspid regurg peak velocity 4.4 m/sec Tricuspid peak RV-RA gradient 78.6 mm Hg Right atrium Value Reference RA area, ES, A4C (H) 25.2 cm^2 8.3 - 19.5 Right ventricle Value Reference RV pressure, S, DP (H) 43 mm Hg <=30 Legend: (L) and (H) john values outside specified reference range. I have personally reviewed the images and have reviewed and edited the reported findings. Electronically signed by Jovan Barlow MD 07/08/2018 19:22
[2018-07-08 14:50] LABS: Troponin I 0.07 ng/mL (0.00-0.06)
[2018-07-08] MEDS: Atorvastatin 10 MG TAB PO (21:52)
[2018-07-09] VITALS (8 sets, daily range): BP systolic 110–141; BP diastolic 74–95; PULSE 61–91; RESP 18; TEMP 36.7–36.8; O2SAT 94–95
[2018-07-09] MEDS: Heparin 5,000 UNITS/ML VIAL 5000 UNITS SC ×3 (02:42→17:48)
[2018-07-09 07:25] LABS: Abs Immature Grans 0.01 k/cumm (0.0-0.09); Absolute Basophil Count 0.02 k/cumm (0.0-0.2); Absolute Eosinophil Count 0.11 k/cumm (0.0-0.7); Absolute Lymphocyte Count 0.42 k/cumm (1.2-3.4); Absolute Monocyte Count 0.47 k/cumm (0.11-0.7); Absolute Neutrophil Count 4.08 k/cumm (1.2-6.7); Basophils % 0.4; Eosinophils % 2.2; HCT 46.5 % (36.0-46.0); HGB 15.5 g/dL (12.0-15.5); Immature Grans % 0.2; Lymphocytes % 8.2; Mean Corp. HGB Concentration 33.3 g/dL (32.0-36.0); Mean Corpuscular Hemoglobin 31.9 pg (27.0-33.0); Mean Corpuscular Volume 95.7 fL (80-95); Mean Platelet Volume 10.8 fL (8.0-11.0); Monocytes % 9.2; Neutrophils % 79.8; Platelet Count 121 x1000/uL (130-400); RBC 4.86 m/cumm (4.00-5.20); RBC Distribution Width 18.3 % (11.7-14.6); White Blood Cell Count 5.11 k/cumm (4.4-10.8)
[2018-07-09 07:30] LABS: BUN 42 mg/dL (7-18); CREATININE 1.72 mg/dL (0.55-1.02); Calcium 8.9 mg/dL (8.5-10.1); Chloride 100 mmol/L (98-107); Estimated GFR 28.68 (mL/min/1.73m2); Glucose 123 mg/dL (70-100); Potassium 3.8 mmol/L (3.5-5.1); Sodium 140 mmol/L (136-145)
[2018-07-09 07:36] LABS: ALT 36 U/L (12-78); AST 32 U/L (15-37); Albumin 3.2 g/dL (3.4-5.0); Alkaline Phosphatase 93 U/L (46-116); Bilirubin, Direct 0.69 mg/dL (0.00-0.20); Bilirubin, Total 2.7 mg/dL (0.2-1.0); Total Protein 6.5 g/dL (6.4-8.2)
[2018-07-09 07:44] LABS: Magnesium 2.7 mg/dL (1.8-2.4)
[2018-07-09] MEDS: Pantoprazole 40 MG TABCR PO (08:27)
[2018-07-09] MEDS: Cholecalciferol (Vitamin D3) 400 UNIT TAB PO (08:27)
[2018-07-09] MEDS: Aspirin E.C. 81 MG TABEC PO (08:29)
[2018-07-09] MEDS: Potassium Chloride 20 MEQ TABCR PO (09:57)
--- NOTE | 2018-07-09 14:39 | PDOC.CMPRO ---
- If Service Date Differs Date of service: 07/09/18 Time of Service: 14:39 Care Management Progress Note S/O: Charissa is sitting up in her chair when this director underwriter sales visits this morning. Charissa reports that she is Scared because I don't know what I'm going to get for news today. RITIKA discussed a Palliative consult with Charissa which she was receptive to, and contacted her son Alberto to arrange for a [address] Roe. Palliative consult completed with Dr. Roe, Dr. Lyle present as well, and discussed Charissa's current medical condition and the results of her Echo. Charissa is understanding that her heart will not recover in its current state. Hospice was discussed which Charissa and her family are receptive to. Amrita, [facility], will meet with Charissa and her sons Alberto and Ricardo this afternoon in regards to the Hospice program. Charissa did report during the consult that she was having anxiety and requested medication for this. Charissa will remain at [facility] overnight, with the plan to return home on Hospice 07/10/18. A: 78 y/o female admitted 07/07/18 for acute CHF exacerbation. P: Charissa will return home on Hospice tomorrow 07/10/18. Amrita, Hospice, to meet with Charissa and her family this evening to discuss what Hospice offers. Hospice paperwork complete and will be provided to Amrita after Hospice consult. Charissa's family will transport her home tomorrow when ready.
--- NOTE | 2018-07-09 14:45 | CMPROGNOTE_ITS ---
- If Service Date Differs Date of service: 07/09/18 Time of Service: 14:39 Care Management Progress Note S/O: Charissa is sitting up in her chair when this sports book writer visits this morning. Charissa reports that she is Scared because I don't know what I'm going to get for news today. RITIKA discussed a Palliative consult with Charissa which she was receptive to, and contacted her son Alberto to arrange for a [address] Roe. Palliative consult completed with Dr. Roe, Dr. Lyle present as w helder, and discussed Charissa's current medical condition and the results of her Echo. Charissa is understanding that her heart will not recover in its current state. Hospice was discussed which Charissa and her family are receptive to. Amrita, [facility], will meet with Charissa and her sons Alberto and Ricardo this afternoon in regards to the Hospice program. Charissa did report during the consult that she was having anxiety and requested medication for this. Charissa will remain at [facility] overnight, with the plan to return home on Hospice 07/10/18. A: 78 y/o female admitted 07/07/18 for acute CHF exacerbation. P: Charissa will return home on Hospice tomorrow 07/10/18. Amrita, Hospice, to meet with Charissa and her family this evening to discuss what Hospice offers. Hospice paperwork complete and will be provided to Amrita after Hospice consult. Charissa's family will transport her home tomorrow when ready.
--- NOTE | 2018-07-09 14:47 | CHAPLAIN ---
Charissa was sitting up in her chair when I visited this morning. She said she was scared because she is anticipating getting news from the doctor and believes it may not be good news. She shared some personal history and told me about her family, her who seven years ago, and she old me the stories behind each of her four tattoos. Charissa said she is a believer, and is part of [employer]'s jehovah's witness but she was unsure about having the show host visit her here. We said a prayer together before I left.
--- NOTE | 2018-07-09 16:23 | W.PM.PROGNOT ---
Date of Service Date of service: 07/09/18 Time of Service: 16:23 Assessment and Plan (1) CHF (congestive heart failure): Current visit: Yes Status: Chronic Appearance of significantly enlarged heart on CXR, grossly elevated BNP, worsening dyspnea, and lower extremity edema in elderly woman with a history of VSD. Patient is not responding well to diuresis Mrs. Slade has a significant Cardiomyopathy, with biventricular failure and significant valvulopathy. Not a candidate for transplant, and very unlikelly to respond to medical management. Discussed case in detail with Cardiology who agrees. Met with Palliative Care with decision to transition to hospice. For tonight will maintain on lasix drip in attempt to diurese as much as possible prior to discharge from the hospital. Plan is for home hospice. (2) Anxiety: Current visit: Yes Status: Chronic Will initiate QHS Mirtazapine as well as very low dose lorazepam, and monitor effects prior to discharge. (3) YOUSUF (acute kidney injury): Current visit: Yes Status: Acute YOUSUF on CKD. May be due to CHF and poor perfusion. Will attempt gentle diuresis as above, and monitor renal function carefully. Avoid nephrotoxins, and renally dose medications when appropriate. (4) Elevated LFTs: Current visit: Yes Status: Acute Likely Congestive Hepatopathy in the setting of current CHF exacerbation. Appears resolved with diuresis. Monitor. (5) Pulmonary hypertension: Current visit: Yes Status: Chronic Noted. ECHO as above. (6) VSD (ventricular septal defect): Current visit: Yes Status: Chronic (7) DVT prophylaxis: Current visit: Yes Status: Acute SC Heparin. (8) Advance directive on file: Current visit: Yes Status: Acute DNR/DNI - transition to hospice care. Subjective Interval history since last seen: Very pleasant 78 year old woman with a prior history of a VSD, admitted from [facility] Emergency Department on 07/07 with a diagnosis of Acute CHF Exacerbation. Mrs. Slade has a past Medical History significant for VSD, CKD, HTN, PHTN, Dyslipidemia, Anxiety, Insomnia, and Venous Insufficiency. The details of her Septal Defect and PHTN are unknown. She reports onset of LE swelling, along with subjective dyspnea over the last few weeks. She was seen in the clinic by her PCP in late April, diagnosed and treated for a lower extremity cellulitis, and seen again recently in follow-up. She was initiated on diuretic therapy at some point in order to assist with the lower extremity edema. Despite this she reports worsening edema, dyspnea, HAQUE, and then with increased work of breathing. The patient awoke on the morning of admissionfeeling worse, and was transported to the hospital via EMS. Work-up was significant for mildly worsened renal function, mildlly Elevated AST and Bilirubin, grossly elevated BNP, and evidence of CHF and significant Cardiomegally by CXR. She was admitted for further evaluation and treatment. This morning the patient feels essentially unchanged. She has not diuresed significantly, and her creatinine is essentially unchanged. Her ECHO showed a severely dilated LV with an EF of 15%, Dilated RV with moderately reduced function, Severely dilated LA, Severely dilated RA, Severe MR & TR, Moderate AI, mild aortic stenosis, and significant PHTN. Cardiology believes this to be an end-stage Cardiomyopathy without significant options options for medical management, and that she is not a candidate for transplant. Palliative care was consulted today. The patient's only complaint today is of anxiety. Exam Narrative Exam Narrative: General: Thin woman, appears comfortable sitting up in bed, AAOX3, NAD Neck: Supple CV: Regular, nontachycardic with mild ectopy, S1S2, 3/6 LLSB murmur. Pulmonary: Bibasilar crackles Abdomen: + Bowel Sounds, soft, nontender, nondistended Vascular: 2 + b/l Pitting edema Psych: Normal mood and affect. Objective Objective Clinical Data: Abnormal lab results 07/09/18 07/09/18 07/09/18 Range/Units 07:04 07:04 07:04 Hct 46.5 H (36.0-46.0) % MCV 95.7 H (80-95) fL RDW 18.3 H (11.7-14.6) % Plt Count 121 L (130-400) x1000/uL Absolute Lymphocytes 0.42 L (1.2-3.4) k/cumm BUN 42 H (7-18) mg/dL Creatinine 1.72 H (0.55-1.02) mg/dL Glucose 123 H (70-100) mg/dL Magnesium 2.7 H (1.8-2.4) mg/dL Total Bilirubin (0.2-1.0) mg/dL Conjugated Bilirubin (0.00-0.20) mg/dL NT-Pro-B Natriuret Pep 49808 H ( - 299) pg/mL Albumin (3.4-5.0) g/dL 07/09/18 Range/Units 07:04 Hct (36.0-46.0) % MCV (80-95) fL RDW (11.7-14.6) % Plt Count (130-400) x1000/uL Absolute Lymphocytes (1.2-3.4) k/cumm BUN (7-18) mg/dL Creatinine (0.55-1.02) mg/dL Glucose (70-100) mg/dL Magnesium (1.8-2.4) mg/dL Total Bilirubin 2.7 H (0.2-1.0) mg/dL Conjugated Bilirubin 0.69 H (0.00-0.20) mg/dL NT-Pro-B Natriuret Pep ( - 299) pg/mL Albumin 3.2 L (3.4-5.0) g/dL Vital Signs Temperature 36.8 C 07/09/18 11:15 Temperature Source Tympanic 07/09/18 11:15 Pulse 83 07/09/18 15:00 Pulse Rhythm Irregular 07/09/18 12:57 Pulse 79 07/07/18 18:01 Respiratory Rate 18 07/09/18 11:15 Respiratory Effort 07/09/18 12:57 Respiratory Depth Shallow 07/09/18 12:57 Respiratory Pattern Normal 07/09/18 12:57 Blood Pressure 141/95 H 07/09/18 11:15 Blood Pressure Mean 88 07/07/18 18:01 Blood Pressure Position Sitting 07/07/18 14:15 Pulse Oximetry 94 L 07/09/18 11:15 Oxygen Delivery Method Nasal Cannula 07/09/18 11:15 Oxygen Flow Rate 1 07/09/18 11:15 Pain Level 2 07/08/18 08:31 Comment 07/08/18 04:30 Intake & Output 07/08/18 07/09/18 07/09/18 23:59 11:59 23:59 Intake Total 779.875 / 1299.667 546.5 / 546.5 Output Total 300 / 695 275 / 275 Balance 479.875 / 604.667 271.5 / 271.5 Weight 47.6 kg Intake: IV 39.875 / 89.667 96.5 / 96.5 Oral 740 / 1210 450 / 450 Output: Urine 300 / 695 275 / 275 Other: Urine Color Yellow Yellow Light Sara Urine Appearance Clear Clear Clear Laboratory Results WBC 5.11 k/cumm (4.4-10.8) 07/09/18 07:04 RBC 4.86 m/cumm (4.00-5.20) 07/09/18 07:04 Hgb 15.5 g/dL (12.0-15.5) 07/09/18 07:04 Hct 46.5 % (36.0-46.0) H 07/09/18 07:04 MCV 95.7 fL (80-95) H 07/09/18 07:04 MCH 31.9 pg (27.0-33.0) 07/09/18 07:04 MCHC 33.3 g/dL (32.0-36.0) 07/09/18 07:04 RDW 18.3 % (11.7-14.6) H 07/09/18 07:04 Plt Count 121 x1000/uL (130-400) L 07/09/18 07:04 MPV 10.8 fL (8.0-11.0) 07/09/18 07:04 Immature Gran % 0.2 07/09/18 07:04 Neutrophils % 79.8 07/09/18 07:04 Band Neutrophils % 0.0 % 07/08/18 06:45 Lymphocytes % 8.2 07/09/18 07:04 Atypical Lymphs % 0 07/08/18 06:45 Monocytes % 9.2 07/09/18 07:04 Eosinophils % 2.2 07/09/18 07:04 Basophils % 0.4 07/09/18 07:04 Metamyelocytes % 0.0 % 07/08/18 06:45 Myelocytes % 0.0 % 07/08/18 06:45 Promyelocytes % 0 % 07/08/18 06:45 Absolute Neutrophils 4.08 k/cumm (1.2-6.7) 07/09/18 07:04 Absolute Lymphocytes 0.42 k/cumm (1.2-3.4) L 07/09/18 07:04 Absolute Monocytes 0.47 k/cumm (0.11-0.7) 07/09/18 07:04 Absolute Eosinophils 0.11 k/cumm (0.0-0.7) 07/09/18 07:04 Absolute Basophils 0.02 k/cumm (0.0-0.2) 07/09/18 07:04 Differential Comment Manual differential 07/08/18 06:45 Other Cell Type 0 07/08/18 06:45 RBC Morphology See below 07/08/18 06:45 Polychromasia Present 07/08/18 06:45 Hypochromasia 2+ 07/08/18 06:45 Poikilocytosis 1+ 07/08/18 06:45 Anisocytosis 2+ 07/08/18 06:45 PT 13.2 sec (9.3-11.0) H 07/07/18 15:07 INR 1.3 (0.9-1.1) H 07/07/18 15:07 APTT 23.6 sec (21.0-31.4) 07/07/18 15:07 Sodium 140 mmol/L (136-145) 07/09/18 07:04 Potassium 3.8 mmol/L (3.5-5.1) 07/09/18 07:04 Chloride 100 mmol/L (98-107) 07/09/18 07:04 Carbon Dioxide 29.0 mmol/L (21.0-32.0) 07/09/18 07:04 Anion Gap 11.0 mmol/L (3-11) 07/09/18 07:04 BUN 42 mg/dL (7-18) H 07/09/18 07:04 Creatinine 1.72 mg/dL (0.55-1.02) H 07/09/18 07:04 Estimated GFR/1.73 m2 28.68 (mL/min/1.73m2) 07/09/18 07:04 Glucose 123 mg/dL (70-100) H 07/09/18 07:04 Calcium 8.9 mg/dL (8.5-10.1) 07/09/18 07:04 Magnesium 2.7 mg/dL (1.8-2.4) H 07/09/18 07:04 Total Bilirubin 2.7 mg/dL (0.2-1.0) H 07/09/18 07:04 Conjugated Bilirubin 0.69 mg/dL (0.00-0.20) H 07/09/18 07:04 AST 32 U/L (15-37) 07/09/18 07:04 ALT 36 U/L (12-78) 07/09/18 07:04 Alkaline Phosphatase 93 U/L (46-116) 07/09/18 07:04 Troponin I 0.07 ng/mL (0.00-0.06) H 07/08/18 14:25 NT-Pro-B Natriuret Pep 19167 pg/mL (-299) H 07/09/18 07:04 Total Protein 6.5 g/dL (6.4-8.2) 07/09/18 07:04 Albumin 3.2 g/dL (3.4-5.0) L 07/09/18 07:04 Objective Narrative Objective Narrative: Exam(s) a US:US echocardiogram *[facility]* *[facility]* [address] [place] [address] Date of study: 07/08/2018 Transthoracic Echocardiography M-mode, complete 2D, complete spectral Doppler, and color Doppler *STUDY CONCLUSIONS* Summary: 1. Left ventricle: The cavity size was severely dilated. The estimated ejection fraction was 15-20%. Diffuse hypokinesis. 2. Ventricular septum: There was a defect in the perimembranous or supracristal region. There was a moderate LVOT - right ventricular level shunt. 3. Aortic valve: There was mild stenosis. There was moderate regurgitation. Valve area (VTI): 1.3cm^2. 4. Mitral valve: There was severe regurgitation. 5. Left atrium: The atrium was severely dilated. 6. Right ventricle: The cavity size was moderately dilated. Systolic function was mildly to moderately reduced. 7. Right atrium: The atrium was severely dilated. 8. Atrial septum: No defect or patent foramen ovale was identified. 9. Tricuspid valve: There was moderate-severe regurgitation. 10. Pulmonic valve: There was moderate regurgitation. 11. Pulmonary arteries: Pulmonary systolic pressure was in the range of 85mm Hg to 100mm Hg. 12. Inferior vena cava: The vessel was patent and dilated. The respirophasic diameter changes were blunted (less than 50%), consistent with elevated central venous pressure.
--- NOTE | 2018-07-09 19:32 | PCNE_ITS ---
Date of service: 07/09/18 History of Present Illness Chief Complaint: acute on chronic heart failure Narrative: Charissa is a 78 yo woman who has managed to avoid doctors for most of her adult life. She has known about her VSD since she was 4 or 5 years old. She says she was told she wouldn't survive to adulthood with it. She was told she should not give to children. She delivered two healthy sons, both of whom accompany her. 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 She is cognitively quite bright. She makes her own decisions. She wants to remain as independent as possible. She understood Dr Lyle when he told her that there was no treatment to fix her heart, short of a transplant. She is not a heart-transplant candidate. Her sons were present throughout the meeting. Charissa did agree to stay for one more day to see if medication for her anxiety is effective. Consults Consult date: 07/09/18 Requesting physician: Ronald Lyle Assessment and Plan (1) Denial about severity of illness: Current visit: Yes Status: Eric has lived with VSD all her life has outlived doctors' prognoses in past doesn't feel as if she has 6 months of less, but appears based on both clinical presentation and her recent ECHO with LVEF of 15% and elevated pulm pressures and faulty valves (2) End stage congestive heart failure: Current visit: Yes Status: Eric cannot get around in her house independently though she wants to gets winded easily will need oxygen at home has a hospital bed but sleeps in her recliner (3) Encounter for hospice care discussion: Current visit: Yes Status: Acute given lack of treatment options, and severity of her disease, and desire to in her own home, Charissa is opting to go home on hospice Dr Lyle and I agree that one more night with anxiety meds on board to see how they work would be best. Plan is for her to be discharged home tomorrow or Thursday and admitted to hospice on Thursday. Sons are supportive. Morales Ortega to do hospice consult today. (4) Palliative care patient: Current visit: Yes Status: Chronic (5) Anxiety: Current visit: Yes Status: Chronic will start mirtazapine at night and for prn use low dose benzos (6) Pulmonary hypertension: Current visit: Yes Status: Chronic only treatment is oxygen advised hospice will cover the cost of oxygen at home Review of Systems Constitutional Reports daytime sleepiness, Reports difficulty sleeping, Reports weakness and Reports weight loss Eyes Reports requires corrective lenses ENT Reports abnormal hearing and Reports disequilibrium Cardiovascular Reports rapid heart rate, Reports pedal edema, Reports edema, Reports lightheadedness, Reports palpitations, Reports dyspnea and Reports dyspnea on exertion Respiratory Reports chest congestion, Reports dyspnea and Reports dyspnea on exertion Gastrointestinal Reports bloating and Reports early satiety Genitourinary Reports urinary incontinence Musculoskeletal Reports back pain, Reports atrophy, Reports loss of height and Reports muscle weakness Integumentary/Breasts Reports unusual bruising Neurologic Reports abnormal hearing, Reports paresthesias, Reports disequilibrium and Reports weakness Psychiatric Reports anxiety, Reports change in appetite, Reports difficulty concentrating and Reports panic attacks Comments: severe anxiety at times, makes her breathing worse Endocrine Reports palpitations Hematologic/Lymphatic Reports easy bruising PFSH Medical History Insomnia (Chronic) Anxiety (Chronic) Pulmonary hypertension (Chronic) Dyslipidemia (Chronic) Hypertension (Chronic) CKD (chronic kidney disease) (Chronic) Chronic venous insufficiency (Chronic) VSD (ventricular septal defect) (Chronic) Sensorineural hearing loss of both ears (Chronic) Family History Son Obesity Son Anxiety Social History Smoking/Tobacco Use Status: Never Alcohol Intake: never Drug use: Never Substance use type: does not use Caregiver/Support person: No Household members: none Housing: house Number of Children: 2 number of grandchildren: 4 Communication Needs: Hard of Hearing and Corrective Lenses Education Level: high school Do you need help understanding health information?: Often current occupation: retired, was a physician office secretary briefly, 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 Lifelong nonsmoker, occasional alcohol use. Exam Const General: cooperative, anxious, frail appearing and ill appearing Nutritional Appearance: average body habitus Orientation: alert, awake and oriented x3 HENMT Head: normocephalic and atraumatic Ears: hearing grossly impaired General nose exam: external nose normal (nasal canula in place) Face and sinus: dry mucous membranes Eyes Conjunctivae: conjunctivae normal Sclera: sclerae normal Neck Neck: no lymphadenopathy and no JVD Chest Chest: normal inspection of the chest Resp Effort & Inspection: able to speak in complete sentences (but gets winded), retractions and uses accessory muscles Auscultation: crackles Cardio Jugular venous pressure: no JVD Rhythm: regular rhythm Heart Sounds: murmur continuous GI Inspection: normal to inspection Palpation: soft Auscultation: normal bowel sounds Back/Spine/Pelvis Thoracic/Lumbar Spine: kyphosis and scoliosis Skin General skin exam: pallor Hair: normal Nails: discolored Neuro General: alert, awake and oriented x3 Cognition: normal cognition Speech: speech normal Motor: strength abnormal Extrem General: edema, muscle atrophy and pedal edema Psych Appearance: grossly normal Mental Status: mental status grossly normal Speech and Movement: speech clear Mood: anxious mood Affect: anxious affect Attitude: cooperative Thought Process: circumstantial Thought Content: delusions (thinks she will live long time still; 'doctors have been wrong before' ) Insight: fair Judgment: fair Results Last Vital Signs Temp 98.2 F 07/09/18 11:15 Pulse 83 07/09/18 15:00 Resp 18 07/09/18 11:15 BP 141/95 H 07/09/18 11:15 Pulse Ox 94 L 07/09/18 11:15 Labs : 07/09/18 07:04 07/09/18 07:04 Laboratory Results - last 24 hr 07/09/18 07/09/18 07/09/18 07:04 07:04 07:04 WBC 5.11 RBC 4.86 Hgb 15.5 Hct 46.5 H MCV 95.7 H MCH 31.9 MCHC 33.3 RDW 18.3 H Plt Count 121 L MPV 10.8 Immature Gran % 0.2 Neutrophils % 79.8 Lymphocytes % 8.2 Monocytes % 9.2 Eosinophils % 2.2 Basophils % 0.4 Absolute Neutrophils 4.08 Absolute Lymphocytes 0.42 L Absolute Monocytes 0.47 Absolute Eosinophils 0.11 Absolute Basophils 0.02 Sodium 140 Potassium 3.8 Chloride 100 Carbon Dioxide 29.0 Anion Gap 11.0 BUN 42 H Creatinine 1.72 H Estimated GFR/1.73 m2 28.68 Glucose 123 H Calcium 8.9 Magnesium 2.7 H Total Bilirubin Conjugated Bilirubin AST ALT Alkaline Phosphatase NT-Pro-B Natriuret Pep 89429 H Total Protein Albumin 07/09/18 07:04 WBC RBC Hgb Hct MCV MCH MCHC RDW Plt Count MPV Immature Gran % Neutrophils % Lymphocytes % Monocytes % Eosinophils % Basophils % Absolute Neutrophils Absolute Lymphocytes Absolute Monocytes Absolute Eosinophils Absolute Basophils Sodium Potassium Chloride Carbon Dioxide Anion Gap BUN Creatinine Estimated GFR/1.73 m2 Glucose Calcium Magnesium Total Bilirubin 2.7 H Conjugated Bilirubin 0.69 H AST 32 ALT 36 Alkaline Phosphatase 93 NT-Pro-B Natriuret Pep Total Protein 6.5 Albumin 3.2 L
[2018-07-09] MEDS: hydrOXYzine HCL 10 MG TAB PO (19:33)
[2018-07-09] MEDS: Atorvastatin 10 MG TAB PO (21:10)
[2018-07-09] MEDS: Mirtazapine 15 MG TAB 7.5 MG PO (21:10)
[2018-07-10 00:29] VITALS: BP 126/69; PULSE 76; RESP 18; TEMP 36.6; O2SAT 92
[2018-07-10] MEDS: Heparin 5,000 UNITS/ML VIAL 5000 UNITS SC ×2 (02:08→10:52)
[2018-07-10 07:29] LABS: Abs Immature Grans 0.01 k/cumm (0.0-0.09); Absolute Basophil Count 0.02 k/cumm (0.0-0.2); Absolute Eosinophil Count 0.13 k/cumm (0.0-0.7); Absolute Lymphocyte Count 0.46 k/cumm (1.2-3.4); Absolute Monocyte Count 0.51 k/cumm (0.11-0.7); Basophils % 0.4; Eosinophils % 2.6; HCT 48.1 % (36.0-46.0); HGB 15.7 g/dL (12.0-15.5); Immature Grans % 0.2; Lymphocytes % 9.1; Mean Corp. HGB Concentration 32.6 g/dL (32.0-36.0); Mean Corpuscular Hemoglobin 31.7 pg (27.0-33.0); Mean Corpuscular Volume 97.2 fL (80-95); Mean Platelet Volume 10.6 fL (8.0-11.0); Monocytes % 10.1; Neutrophils % 77.6; Platelet Count 128 x1000/uL (130-400); RBC 4.95 m/cumm (4.00-5.20); RBC Distribution Width 18.4 % (11.7-14.6); White Blood Cell Count 5.03 k/cumm (4.4-10.8)
[2018-07-10 07:40] VITALS: BP 137/84; PULSE 70; RESP 24; TEMP 36.3; O2SAT 95
[2018-07-10 07:43] LABS: Anion Gap 8.9 mmol/L (3-11); BUN 39 mg/dL (7-18); CO2 31.1 mmol/L (21.0-32.0); CREATININE 1.66 mg/dL (0.55-1.02); Calcium 8.8 mg/dL (8.5-10.1); Chloride 102 mmol/L (98-107); Estimated GFR 29.88 (mL/min/1.73m2); Glucose 100 mg/dL (70-100); Magnesium 2.7 mg/dL (1.8-2.4); Potassium 3.9 mmol/L (3.5-5.1); Sodium 142 mmol/L (136-145)
[2018-07-10 07:51] LABS: ALT 32 U/L (12-78); AST 26 U/L (15-37); Albumin 3.3 g/dL (3.4-5.0); Alkaline Phosphatase 96 U/L (46-116); Bilirubin, Total 2.6 mg/dL (0.2-1.0); Total Protein 6.7 g/dL (6.4-8.2)
[2018-07-10 08:02] LABS: Bilirubin, Direct 0.72 mg/dL (0.00-0.20)
[2018-07-10] MEDS: Cholecalciferol (Vitamin D3) 400 UNIT TAB PO (08:27)
[2018-07-10] MEDS: Pantoprazole 40 MG TABCR PO (08:27)
[2018-07-10] MEDS: Aspirin E.C. 81 MG TABEC PO (08:28)
--- NOTE | 2018-07-10 08:30 | CMDISCH_ITS ---
- If Service Date Differs Date of service: 07/10/18 Time of Service: 08:24 LACE Index Scoring Tool - Questions: Length of Stay (in days): 3 Acuity (Admit via E.D.?): Yes Comorbidities: Congestive Heart Failure E.D. Visits: 1 - Answers: Total Score: 9 Risk of Readmission: Low Risk Care Management Discharge Reason for Hospitalization: CHF Exacerbation Discharge Plan: Charissa will be discharged home today with family and hospice services. CM spoke to hospice nurse and Charissa will be admitted on Thursday to their service. [employer] will be delivering equipment to the home today incluing oxygen. RT will discharge Charissa with a portable tank through [facility]. Family will transport her home at time of discharge. CM contacted son Alberto who will pick patient up as soon as [facility] delivers the equipment. CM requested humidified oxygen for the patient at home r/t nasal dryness and nose bleed. Services Needed at Discharge: DME Agency, Home Health Care Services, Oxygen Therapy
[2018-07-10 09:35] VITALS: O2SAT 94
--- NOTE | 2018-07-10 11:04 | W.PM.DS.N ---
Date of service: 07/10/18 Time of Service: 11:04 DS: Diagnosis Discharge Diagnosis (1) End stage congestive heart failure: Status: Chronic Asessment and Plan: EF 15-20%, dilated LV, diffuse hypokinesis, in acute exacerbation (2) Anxiety: Status: Chronic (3) Pulmonary hypertension: Status: Chronic Asessment and Plan: Severe, PA pressures of 85-100 mmHg. (4) YOUSUF (acute kidney injury): Status: Acute (5) Elevated LFTs: Status: Acute (6) VSD (ventricular septal defect): Status: Chronic Asessment and Plan: with right ventricular level shunt (7) Hypoxia: Status: Acute (8) Cardiomyopathy: Status: Chronic (9) Aortic regurgitation: Status: Chronic (10) Severe mitral regurgitation: Status: Chronic (11) Tricuspid regurgitation: Status: Chronic (12) Pulmonic regurgitation: Status: Chronic (13) Hypertension: Status: Chronic (14) CKD (chronic kidney disease): Status: Chronic (15) Chronic venous insufficiency: Status: Chronic (16) Insomnia: Status: Chronic (17) Dyslipidemia: Status: Chronic (18) Sensorineural hearing loss of both ears: Status: Chronic (19) Acute kidney injury superimposed on chronic kidney disease: Status: Acute Discharge Plan Disposition Patient Disposition: HOME W/HOME HEALTH SERVICE Condition: Improving Discharge Details Reason For Visit: ACUTE CHF EXACERBATION Admit Date/Time: 07/07/18 17:35 Admit Provider: Ronald Lyle Attending Provider: Ronald Lyle Primary Care Provider: Selena Santacruz Hospital Course Hospital Course: Ms Slade is a 78 year old female with PMHx of VSD without history of prior intervention, as well as pulmonary hypertension, essential hypertension, hyperlipidemia, CKD 3-4, admitted to [facility] on 07/07/18 in acute CHF with hypoxia. She was diuresed with lasix gtt, though her response to diuresis was very modest, ruled out for an acute coronary syndrome. Echocardiogram was obtained, revealing severe LV dysfunction (EF of 15-20%), severe pulmonary hypertension, a right to left venntricular level shunt. Given the severity of the patient's findings/condition, palliative care consultation was sought. The patient's wishes were to be discharged home on hospice today, which we feel is appropriate. The patient's medication management from this point on will be deferred to hospice and PCP. The patient is being discharged home with oxygen and a foote catheter. We appreciate the opportunity to help take care of the patient and wish her and her family well! A total of 45 minutes were spent on providing care for the patient/on this discharge summary. Home Meds and New Rx's Prescriptions: New mirtazapine [Remeron] 15 mg Tablet 7.5 mg PO HS Qty: 30 RF: 0 furosemide [Lasix] 40 mg tablet 40 mg PO BID Qty: 60 RF: 0 Continued cholecalciferol (vitamin D3) 400 unit Capsule 400 unit PO DAILY RF: 0 atorvastatin 10 mg Tablet 10 mg PO QHS RF: 0 aspirin [Aspir-81] 81 mg Tablet,Delayed Release (Dr/Ec) 81 mg PO DAILY RF: 0 lorazepam 0.5 mg Tablet 0.5 mg PO QHS PRNRF: 0 hydroxyzine HCl 10 mg Tablet 10 mg PO HS RF: 0 [place] 3 830 mg PO DAILY RF: 0 Discontinued furosemide [Lasix] 20 mg Tablet 20 mg PO DAILY RF: 0 Discharge Instructions Instructions: Cor Pulmonale (DC), Pulmonary Arterial Hypertension (DC), Congenital Heart Disease (DC) Additional Instructions: Return to the hospital if your symptoms are not managed well at home. O2 for comfort - 1 L/min, may titrate. Foote catheter to remain in on discharge. Care Plan Goals: Discharge home with home hospice Activity:: Activity as Tolerated Equipment/Supplies:: Oxygen (L/min Below) Diet:: As Tolerated Discharge Orders Discharge Orders: Discharge Order (Routine); Ordered 07/10/18 Ordered By: Ankita Dumont Exam Narrative Exam Narrative: General: very pleasant frail elderly female, A&Ox3, sitting comfortably in a chair with her stuffed animal (Julian), very minimal dyspnea while talking to me in complete sentences HEENT: EOMI, MMM Heart: RRR, loud NATA Lungs: diminished breath sounds B GI: abdomen is soft, nontender, nondistended Extremities: 3+ B pitting edema, in compression stockings DS: Data Vitals/I&O Vitals and I&O: Vital Signs Temperature 36.6 C 07/10/18 00:29 Temperature Source Tympanic 07/10/18 00:29 Pulse 76 07/10/18 00:29 Pulse Rhythm Irregular 07/09/18 21:18 Pulse 79 07/07/18 18:01 Respiratory Rate 18 07/10/18 00:29 Respiratory Effort 07/09/18 21:18 Respiratory Depth Normal 07/09/18 21:18 Respiratory Pattern Normal 07/09/18 21:18 Blood Pressure 126/69 07/10/18 00:29 Blood Pressure Mean 88 07/07/18 18:01 Blood Pressure Position Sitting 07/07/18 14:15 Pulse Oximetry 92 L 07/10/18 00:29 Oxygen Delivery Method Nasal Cannula 07/10/18 00:29 Oxygen Flow Rate 1 07/10/18 00:29 Pain Level 2 07/08/18 08:31 Comment 07/08/18 04:30 Intake & Output 07/09/18 07/09/18 07/10/18 11:59 23:59 11:59 Intake Total 546.5 / 646.5 100 / 646.5 445.375 / 445.375 Output Total 275 / 275 1075 / 1075 Balance 271.5 / 371.5 100 / 371.5 -629.625 / -629.625 Weight 47.6 kg 49.5 kg Intake: IV 96.5 / 196.5 100 / 196.5 90.375 / 90.375 Oral 450 / 450 355 / 355 Output: Urine 275 / 275 1075 / 1075 Other: Urine Color Yellow Light Sara Straw Urine Appearance Clear Clear Clear Completed studies during hospitalization [Text1]: CXR 07/07/18: Marked cardiomegaly, question mild CHF. No previous films available for comparison. 2D echo 07/08/18: 1. Left ventricle: The cavity size was severely dilated. The estimated ejection fraction was 15-20%. Diffuse hypokinesis. 2. Ventricular septum: There was a defect in the perimembranous or supracristal region. There was a moderate LVOT - right ventricular level shunt. 3. Aortic valve: There was mild stenosis. There was moderate regurgitation. Valve area (VTI): 1.3cm^2. 4. Mitral valve: There was severe regurgitation. 5. Left atrium: The atrium was severely dilated. 6. Right ventricle: The cavity size was moderately dilated. Systolic function was mildly to moderately reduced. 7. Right atrium: The atrium was severely dilated. 8. Atrial septum: No defect or patent foramen ovale was identified. 9. Tricuspid valve: There was moderate-severe regurgitation. 10. Pulmonic valve: There was moderate regurgitation. 11. Pulmonary arteries: Pulmonary systolic pressure was in the range of 85mm Hg to 100mm Hg. 12. Inferior vena cava: The vessel was patent and dilated. The respirophasic diameter changes were blunted (less than 50%), consistent with elevated central venous pressure. Labs on day of discharge: Labs from last 24 hours 07/10/18 07/10/18 07/10/18 07:06 07:06 07:06 WBC 5.03 RBC 4.95 Hgb 15.7 H Hct 48.1 H MCV 97.2 H MCH 31.7 MCHC 32.6 RDW 18.4 H Plt Count 128 L MPV 10.6 Immature Gran % 0.2 Neutrophils % 77.6 Lymphocytes % 9.1 Monocytes % 10.1 Eosinophils % 2.6 Basophils % 0.4 Absolute Neutrophils 3.90 Absolute Lymphocytes 0.46 L Absolute Monocytes 0.51 Absolute Eosinophils 0.13 Absolute Basophils 0.02 Sodium 142 Potassium 3.9 Chloride 102 Carbon Dioxide 31.1 Anion Gap 8.9 BUN 39 H Creatinine 1.66 H Estimated GFR/1.73 m2 29.88 Glucose 100 Calcium 8.8 Magnesium 2.7 H Total Bilirubin 2.6 H Conjugated Bilirubin 0.72 H AST 26 ALT 32 Alkaline Phosphatase 96 Total Protein 6.7 Albumin 3.3 L PFSH Medical History Denial about severity of illness (Chronic) End stage congestive heart failure (Chronic) Encounter for hospice care discussion (Acute) Palliative care patient (Chronic) Insomnia (Chronic) Anxiety (Chronic) Pulmonary hypertension (Chronic) Dyslipidemia (Chronic) Hypertension (Chronic) CKD (chronic kidney disease) (Chronic) Chronic venous insufficiency (Chronic) VSD (ventricular septal defect) (Chronic) Sensorineural hearing loss of both ears (Chronic) Social History Smoking/Tobacco Use Status: Never Alcohol Intake: never Drug use: Never Substance use type: does not use Caregiver/Support person: No Household members: none Housing: house Number of Children: 2 number of grandchildren: 4 Communication Needs: Hard of Hearing and Corrective Lenses Education Level: high school Do you need help understanding health information?: Often current occupation: retired, was a production welder briefly, 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 Lifelong nonsmoker, occasional alcohol use.
[2018-07-10] MEDS: LORazepam 0.5 MG TAB 0.25 MG PO (13:25)
== END 2018-07-10 15:09 | disposition home health service (06) | DRG 291 ==
LOC: ER 18:05 → MS 18:35
PROVIDERS: Admitting Provider Internal Medicine; Emergency Provider Emergency Medicine; PCP Nurse Practitioner; Visit Provider Internal Medicine
DX: I13.0 Hypertensive heart and chronic kidney disease with heart failure and stage 1 through stage 4 chronic kidney disease, or unspecified chronic kidney disease (principal); I50.23 Acute on chronic systolic (congestive) heart failure; N17.9 Acute kidney failure, unspecified; Q21.0 Ventricular septal defect; I50.84 End stage heart failure; N18.9 Chronic kidney disease, unspecified; F41.9 Anxiety disorder, unspecified; I27.20 Pulmonary hypertension, unspecified; R94.5 Abnormal results of liver function studies; R09.02 Hypoxemia; I42.9 Cardiomyopathy, unspecified; I08.3 Combined rheumatic disorders of mitral, aortic and tricuspid valves; I87.2 Venous insufficiency (chronic) (peripheral); G47.00 Insomnia, unspecified; E78.5 Hyperlipidemia, unspecified; I51.7 Cardiomegaly
CPT/HCPCS: 36415; 51702; 80048; 80053; 80076; 93005; 99223; 99232; 99239; 99255; 99285; 71046; 83735; 83880; 84484; 85025; 85610; 85730; 93010; 93306; J1644; J1940; J3490